=== PATIENT | female | born 1990 | race Caucasian/White ===

== ENCOUNTER 2022-06-06 21:04 | Emergency (ER) | payer SELFPAY ==
[~2022-06-06] VITALS: Ht 152.4 cm; Wt 59.0 kg
[2022-06-06] MEDS ORDERED: IBUPROFEN 600MG TABLET PO ONE (23:45)
[2022-06-06] MEDS ORDERED: BACITRACIN ZINC OINT UDPKT TOP ONE (23:45)
[2022-06-07] MEDS ORDERED: CEPH500T MT (00:34)
[2022-06-07] MEDS ORDERED: BO1 TP (00:34)
[2022-06-07 01:08] VITALS: BP 124/78
== END 2022-06-07 01:00 | disposition home or self-care (01) ==
LOC: ER 21:19
DX: S90.821A Blister (nonthermal), right foot, initial encounter (principal); X58.XXXA Exposure to other specified factors, initial encounter; Y93.89 Activity, other specified; Y92.018 Other place in single-family (private) house as the place of occurrence of the external cause
CPT/HCPCS: 81025; 99283